=== PATIENT | female | born 1955 | race Caucasian/White ===

== ENCOUNTER 2016-12-13 13:58 | Emergency (ER) | payer BC ==
[2016-12-13] MEDS ORDERED: BYSTOLIC5 M1 PO (14:30)
[2016-12-13] MEDS ORDERED: ASPIRIN EC81 MG PO (14:31)
[2016-12-13] MEDS ORDERED: VALSARTAN-HCTZ1 EA10 PO (14:31)
[2016-12-13] MEDS ORDERED: TECFIDERA240 MG PO (14:31)
== END 2016-12-13 16:17 ==
LOC: EDMED 13:58
DX: S80.212A Abrasion, left knee, initial encounter (principal); S80.211A Abrasion, right knee, initial encounter; I10 Essential (primary) hypertension; Z88.0 Allergy status to penicillin; W01.0XXA Fall on same level from slipping, tripping and stumbling without subsequent striking against object, initial encounter